=== PATIENT | female | born 1970 | race Caucasian/White ===

== ENCOUNTER 2018-01-11 09:03 | Day surgery (SDC) | payer BC ==
[~2018-01-11] VITALS: Ht 167.6 cm; Wt 90.7 kg
[2018-01-11] MEDS ORDERED: OXYCODONE/ACETAMINOPHEN 5-325 TABLET PO PRN (10:45)
[2018-01-11] MEDS ORDERED: ONDANSETRON HCL 4 MG/2 ML VIAL IVP PRN (10:45)
[2018-01-11] MEDS ORDERED: HYDROcodone/ACETAMIN 5-325 MG TAB (NORCO/ VICODIN) PO PRN (10:45)
[2018-01-11] MEDS ORDERED: SEVOFLURANE 15 MIN GAS INH ONE (10:50)
[2018-01-11] MEDS ORDERED: MIDAZOLAM HCL 5 MG/5 ML VIAL IVP ONE (10:50)
[2018-01-11] MEDS ORDERED: ROCURONIUM BROMIDE 10 MG/ML (ZEMURON) IV ONE (10:50)
[2018-01-11] MEDS ORDERED: ONDANSETRON HCL 4 MG/2 ML VIAL IVP ONE (10:50)
[2018-01-11] MEDS ORDERED: LR 1,000 ML IV.SOLN IV ONE (10:50)
[2018-01-11] MEDS ORDERED: fentaNYL CITRATE/PF 100 MCG/2 ML AMP IVP ONE (10:50)
[2018-01-11] MEDS ORDERED: KETOROLAC TROMETHAMINE 30 MG VIAL IVP ONE (10:50)
[2018-01-11] MEDS ORDERED: PROPOFOL 200MG/ 20ML VIAL (DIPRIVAN) IV ONE (10:50)
[2018-01-11] MEDS ORDERED: LR 1,000 ML IV SCH (11:16)
[2018-01-11] MEDS ORDERED: METOCLOPRAMIDE HCL 10 MG/2 ML VIAL IVP PRN (11:30)
[2018-01-11] MEDS ORDERED: MORPHINE 4 MG/ML INJ. SYRINGE IVP PRN ×6 (11:30)
[2018-01-11] MEDS ORDERED: MORPHINE 4 MG/ML INJ. SYRINGE ONE (12:22)
[2018-01-11 12:57] VITALS: BP_SYST 125
[2018-01-11] MEDS ORDERED: CEFAZOLIN 1 GM IVPB PREMIX 50 ML IV ONE (13:00)
[2018-01-11] MEDS ORDERED: OXYCODONE/ACETAMINOPHEN 5-325 TABLET ONE (13:32)
== END 2018-01-11 15:35 | disposition home or self-care (01) ==
LOC: SDS 09:03 → SMU 09:05 → SDS 15:35
PROVIDERS: ATTEND Specialist
DX: N85.00 Endometrial hyperplasia, unspecified (principal); Z68.31 Body mass index [BMI] 31.0-31.9, adult; Z79.899 Other long term (current) drug therapy; E66.3 Overweight; K21.9 Gastro-esophageal reflux disease without esophagitis; F32.9 Major depressive disorder, single episode, unspecified
CPT/HCPCS: 58300; 58563; 88305; J0690; J1885; J2250; J2270; J2405; J2704; J3010; J7120